=== PATIENT | female | born 1980 | race Caucasian/White ===

== ENCOUNTER 2016-09-10 05:17 | Emergency (ER) | payer MEDICAID ==
[~2016-09-10] VITALS: Ht 160 cm; Wt 88.2 kg
[2016-09-10 05:22] VITALS: BP 134/91; PULSE 103; RESP 18; TEMP 98; O2SAT 97
[2016-09-10] MEDS ORDERED: PREN29TA PO (05:37)
[2016-09-10] MEDS ORDERED: SODIUM CHLOR 0.9% 1000 ML INJ 1,000 ML IV ONE (05:41)
[2016-09-10] MEDS ORDERED: MORPHINE SULFATE 8 MG/ML INJ IV PUSH ONE (05:45)
[2016-09-10] MEDS ORDERED: ONDANSETRON HCL 4 MG/2 ML VIAL IV PUSH ONE (05:45)
--- NOTE | 2016-09-10 05:49 | PD ---
HPI Chief Complaint: Related Problem Time Seen by Provider: 05:29 Travel History International Travel<30 days: No Contact w/Intl Traveler<30days: No Traveled to known affect area: No History of Present Illness HPI 36 yo LMP 8 weeks prior states she has had pelvic and back pain for about 2 hours. It woke her up from sleep. She has not used pads to collect blood however states "a lot of blood" has been observed. She states her pain is sharp and severe 10/10. First obstetrics appointment is in 7 days. No discharge. No vomiting or fever. PFSH Past Medical History Arthritis: Yes (RHEUMATOID) Asthma: No Blood Disorders: No Heart Rhythm Problems: No Cancer: No Cardiovascular Problems: No High Cholesterol: Yes Chemotherapy: No Chest Pain: No Congestive Heart Failure: No COPD: No Diabetes: No Diminished Hearing: No Endocrine: No Genitourinary: No Immune Disorder: Yes (RHEUMATOID ARTHRITIS) Musculoskeletal: Yes (L SPINE CHRONICK PAIN DUE TO 3 DISCKS CARTILAGE PROBLEMS ) Neurologic: No Psychiatric: No Reproductive: No Respiratory: No Radiation Therapy: No Sleep Apnea: No Thyroid Disease: No ?: LMP: 11-17-16 : 1 Para: 1 Dilation and Curettage (D&C): Yes (HISTOSCOPY, LAPROSCOPY.) Past Surgical History Abdominal Surgery: Yes (DECEMBER 2006 - LAPAROSCOPY) Gynecologic Surgery: Yes (HYSTEROSTOMY DECEMBER 2006) Hysterectomy: Yes Other Surgery: Yes (HYSTEROSCOPY/LAPOROSCOPY X 10 YRS AGO) Social History Alcohol Use: No Tobacco Use: Yes (1 PACK DAILY) Substance Use: No Allergies-Medications (Allergen,Severity, Reaction): Coded Allergies: Cleocin (Verified Allergy, Severe, Anaphylaxis, 09/10/16) Naprosyn (Verified Allergy, Severe, SWELLING, 09/10/16) Codeine (Verified Allergy, Mild, ITCH, 09/10/16) Phenazopyridine (Verified Adverse Reaction, Mild, Nausea/Vomiting, 09/10/16 ) Reported Meds & Prescriptions Reported Meds & Active Scripts Active Reported Plus Iron 29-1 mg ( Vit-Iron Carbonyl) 1 Tab Tab 1 Tab PO HS Review of Systems Except as stated in HPI: all other systems reviewed are Neg General / Constitutional: No: Fever, Chills Genitourinary: Positive: Vaginal Bleeding Physical Exam Narrative GENERAL: 36 yo F, crying, WNWD SKIN: Warm and dry. HEAD: Atraumatic. Normocephalic. EYES: Pupils equal and round. No scleral icterus. No injection or drainage. ENT: No nasal bleeding or discharge. Mucous membranes pink and moist. NECK: Trachea midline. No JVD. CARDIOVASCULAR: Regular rate and rhythm. RESPIRATORY: No accessory muscle use. Clear to auscultation. Breath sounds equal bilaterally. GASTROINTESTINAL: Abdomen soft, non-tender, nondistended. Hepatic and splenic margins not palpable. No pain during performance of TA ultrasound. MUSCULOSKELETAL: Extremities without clubbing, cyanosis, or edema. No obvious deformities. NEUROLOGICAL: Awake and alert. No obvious cranial nerve deficits. Motor grossly within normal limits. Five out of 5 muscle strength in the arms and legs. Normal speech. PSYCHIATRIC: Appropriate mood and affect; insight and judgment normal. Data Data Last Documented VS Vital Signs Date Time Temp Pulse Resp B/P Pulse Ox O2 Delivery O2 Flow Rate FiO2 09/10/16 06:33 82 18 128/77 97 Room Air 09/10/16 05:22 98.0 Orders Complete Rh (09/10/16 05:30) Urinalysis - C+S If Indicated (09/10/16 05:30) Ed Urine Pregnancytest Poc (09/10/16 05:30) Ed Poc Ultrasound (09/10/16 05:30) Complete Blood Count With Diff (09/10/16 05:41) Comprehensive Metabolic Panel (09/10/16 05:41) Iv Access Insert/Monitor (09/10/16 05:41) Ecg Monitoring (09/10/16 05:41) Sodium Chlor 0.9% 1000 Ml Inj (Ns 1000 M (09/10/16 05:41) Morphine Inj (Morphine Inj) (09/10/16 05:45) Ondansetron Inj (Zofran Inj) (09/10/16 05:45) Beta Hcg (Quant/Titer) (09/10/16 05:41) Gc And Chlamydia Pcr (09/10/16 06:16) Wet Prep Profile (09/10/16 06:16) Ct Abd/Pel W Iv Contrast(Rout) (09/10/16 06:28) Labs Laboratory Tests Test 09/10/16 09/10/16 09/10/16 05:40 06:10 06:25 White Blood Count 8.7 TH/MM3 Red Blood Count 4.22 MIL/MM3 Hemoglobin 13.6 GM/DL Hematocrit 39.2 % Mean Corpuscular Volume 92.7 FL Mean Corpuscular Hemoglobin 32.2 PG Mean Corpuscular Hemoglobin 34.7 % Concent Red Cell Distribution Width 13.6 % Platelet Count 279 TH/MM3 Mean Platelet Volume 8.4 FL Neutrophils (%) (Auto) 60.1 % Lymphocytes (%) (Auto) 30.0 % Monocytes (%) (Auto) 6.6 % Eosinophils (%) (Auto) 3.1 % Basophils (%) (Auto) 0.2 % Neutrophils # (Auto) 5.2 TH/MM3 Lymphocytes # (Auto) 2.6 TH/MM3 Monocytes # (Auto) 0.6 TH/MM3 Eosinophils # (Auto) 0.3 TH/MM3 Basophils # (Auto) 0.0 TH/MM3 CBC Comment DIFF FINAL Differential Comment Sodium Level 149 MEQ/L Potassium Level 4.0 MEQ/L Chloride Level 113 MEQ/L Carbon Dioxide Level 25.5 MEQ/L Anion Gap 11 MEQ/L Blood Urea Nitrogen 10 MG/DL Creatinine 0.84 MG/DL Estimat Glomerular Filtration 78 ML/MIN Rate Random Glucose 104 MG/DL Calcium Level 8.4 MG/DL Total Bilirubin 0.4 MG/DL Aspartate Amino Transf 10 U/L (AST/SGOT) Alanine Aminotransferase 12 U/L (ALT/SGPT) Alkaline Phosphatase 66 U/L Total Protein 7.4 GM/DL Albumin 3.5 GM/DL Human Chorionic Gonadotropin, LESS THAN 1 Quant MIU/ML Blood Type AB POSITIVE Rho(D) Type POSITIVE Urine Collection Type CLEAN CATCH Urine Color YELLOW Urine Turbidity CLEAR Urine pH 7.0 Urine Specific [place] 1.020 Urine Protein NEG mg/dL Urine Glucose (UA) NEG mg/dL Urine Ketones NEG mg/dL Urine Occult Blood LARGE Urine Nitrite NEG Urine Bilirubin NEG Urine Leukocyte Esterase NEG Urine RBC 20-24 /hpf Urine Squamous Epithelial 0-5 /hpf Cells Urine Amorphous Sediment FEW Microscopic Urinalysis Comment CULT NOT INDICATED Urine Collection Time 0610 Clue Cells (Wet Prep) NONE SEEN Vaginal Trichomonas (Wet Prep) NONE SEEN Vaginal Yeast (Wet Prep) NONE SEEN MDM Medical Decision Making Medical Screen Exam Complete: Yes Emergency Medical Condition: Yes Medical Record Reviewed: Yes Differential Diagnosis Threatened , ectopic , UTI Narrative Course TA ultrasound demonstrates no IUP. CBC & BMP Diagram 09/10/16 05:40 LFTs normal Beta < 1 U preg negative UA: Hematuria with no UTI Pt notified of negative urine . Pelvic exam with minimal CMT and minimal L adnexal tenderness without mass. Minimal heterogenous blood in vault. Pt c/o pressure in epigastrium and pain in the back. CT ab/pel added. Oncoming provider to follow up CT and disposition appropriately. Scar Guzman MD Sep 10, 2016 05:49 Disposition: 01 DISCHARGE HOME Condition: Stable Scar Guzman MD Sep 10, 2016 05:49
[2016-09-10 06:00] LABS: AUTOMATED NEUTROPHIL # 5.2 TH/MM3 (1.8-7.7); BASOPHIL % 0.2 % (0.0-2.0); EOSINOPHIL # 0.3 TH/MM3 (0-0.4); EOSINOPHIL % 3.1 % (0.0-4.0); HEMATOCRIT 39.2 % (35.0-46.0); HEMO FLAGS DIFF FINAL; LYMPHOCYTE # 2.6 TH/MM3 (1.0-4.8); MEAN CELL VOLUME 92.7 FL (80.0-100.0); MEAN CORPUSCULAR HEMOGLOBIN 32.2 PG (27.0-34.0); MEAN CORPUSCULAR HGB CONC 34.7 % (32.0-36.0); MONO % 6.6 % (0.0-8.0); NEUT % 60.1 % (16.0-70.0); PLATELET COUNT 279 TH/MM3 (150-450); RED BLOOD COUNT 4.22 MIL/MM3 (4.00-5.30); RED CELL DISTRIBUTION WIDTH 13.6 % (11.6-17.2); WHITE BLOOD COUNT 8.7 TH/MM3 (4.0-11.0)
[2016-09-10 06:10] LABS: CHLORIDE 113 MEQ/L (98-107); SODIUM (NA) 149 MEQ/L (136-145)
[2016-09-10 06:13] LABS: ANION GAP 11 MEQ/L (5-15); BICARBONATE 25.5 MEQ/L (21.0-32.0); BLOOD UREA NITROGEN 10 MG/DL (7-18)
[2016-09-10 06:16] LABS: ALT (GPT) 12 U/L (10-53); AST (GOT) 10 U/L (15-37); GLOMERULAR FILTRATION RATE 78 ML/MIN (>89)
[2016-09-10 06:18] LABS: TOTAL BILIRUBIN ADULT 0.4 MG/DL (0.2-1.0)
[2016-09-10 06:19] LABS: ALKALINE PHOSPHATASE 66 U/L (45-117)
[2016-09-10 06:21] LABS: BETA HCG QUANT LESS THAN 1 MIU/ML (0-5)
[2016-09-10 06:23] LABS: BLOOD, URINE LARGE (NEG); GLUCOSE,URINE NEG (NEG); KETONE, URINE NEG (NEG); NITRITE,URINE NEG (NEG)
[2016-09-10 06:26] LABS: METHOD OF COLLECTION CLEAN CATCH; URINE COLOR YELLOW (YELLW/STRAW)
[2016-09-10 06:27] LABS: CULTURE IF INDICATED CULT NOT INDICATED; SQUAMOUS EPITHELIAL CELL URINE 0-5 /hpf (0-5)
[2016-09-10 06:28] LABS: COMMENT (UR) CULT NOT INDICATED; COMMENT2 (UR) MUCOUS PRESENT
[2016-09-10 06:33] VITALS: BP 128/77; PULSE 82; RESP 18; O2SAT 97
[2016-09-10] MEDS ORDERED: IOHEXOL 350 MG/ML 10 ML VIAL (for RAD DIAG) IV ONE (07:04)
--- NOTE | 2016-09-10 07:13 | RADHPO ---
EXAM DATE/TIME: 09/10/2016 06:50 [facility] COMPARISON: No previous studies available for comparison. INDICATIONS : Pelvic and lower back pain. IV CONTRAST: 96 cc Omnipaque 350 (iohexol) IV ORAL CONTRAST: No oral contrast ingested. RADIATION DOSE: 18.2 CTDIvol (mGy) MEDICAL HISTORY : Rheumatoid arthritis. SURGICAL HISTORY : Hysterectomy. ENCOUNTER: Initial ACUITY: 1 day PAIN SCALE: 8/10 LOCATION: Bilateral pelvis TECHNIQUE: Volumetric scanning of the abdomen and pelvis was performed. Using automated exposure control and ad justment of the mA and/or kV according to patient size, radiation dose was kept as low as reasonably achievable to obtain optimal diagnostic quality images. FINDINGS: LOWER LUNGS: The visualized lower lungs are clear. LIVER: Homogeneous density without lesion. There is no dilation of the biliary tree. No calcified gallston es. SPLEEN: Normal size without lesion. PANCREAS: Within normal limits. KIDNEYS: Normal in size and shape. There is no mass, stone or hydronephrosis. ADRENAL GLANDS: Within normal limits. VASCULAR: There is no aortic aneurysm. BOWEL/MESENTERY: The stomach, small bowel, and colon demonstrate no acute abnormality. There is no free intraperitone al air or fluid. ABDOMINAL WALL: Within normal limits. RETROPERITONEUM: There is no lymphadenopathy. BLADDER: No wall thickening or mass. REPRODUCTIVE: 5.0 x 4.7 x 4.0 cm mass right adnexa likely prominent functional cyst on the right ovary. Small amoun t of free fluid INGUINAL: There is no lymphadenopathy or hernia. MUSCULOSKELETAL: Within normal limits for patient age. CONCLUSION: Normal examination except prominent functional cyst on the right ovary. Nathan Villafuerte MD on September 10, 2016 at 7:10 Board Certified Radiologist. This report was verified electronically.
--- NOTE | 2016-09-10 07:23 | PD ---
Data Data Last Documented VS Vital Signs Date Time Temp Pulse Resp B/P Pulse Ox O2 Delivery O2 Flow Rate FiO2 09/10/16 06:33 82 18 128/77 97 Room Air 09/10/16 05:22 98.0 Orders Complete Rh (09/10/16 05:30) Urinalysis - C+S If Indicated (09/10/16 05:30) Ed Urine Pregnancytest Poc (09/10/16 05:30) Ed Poc Ultrasound (09/10/16 05:30) Complete Blood Count With Diff (09/10/16 05:41) Comprehensive Metabolic Panel (09/10/16 05:41) Iv Access Insert/Monitor (09/10/16 05:41) Ecg Monitoring (09/10/16 05:41) Sodium Chlor 0.9% 1000 Ml Inj (Ns 1000 M (09/10/16 05:41) Morphine Inj (Morphine Inj) (09/10/16 05:45) Ondansetron Inj (Zofran Inj) (09/10/16 05:45) Beta Hcg (Quant/Titer) (09/10/16 05:41) Gc And Chlamydia Pcr (09/10/16 06:16) Wet Prep Profile (09/10/16 06:16) Ct Abd/Pel W Iv Contrast(Rout) (09/10/16 06:28) Iohexol 350 Inj (Omnipaque 350 Inj) (09/10/16 07:04) Us Pelvis Comp W Dop Transvag (09/10/16 ) Labs Laboratory Tests Test 09/10/16 09/10/16 09/10/16 05:40 06:10 06:25 White Blood Count 8.7 TH/MM3 Red Blood Count 4.22 MIL/MM3 Hemoglobin 13.6 GM/DL Hematocrit 39.2 % Mean Corpuscular Volume 92.7 FL Mean Corpuscular Hemoglobin 32.2 PG Mean Corpuscular Hemoglobin 34.7 % Concent Red Cell Distribution Width 13.6 % Platelet Count 279 TH/MM3 Mean Platelet Volume 8.4 FL Neutrophils (%) (Auto) 60.1 % Lymphocytes (%) (Auto) 30.0 % Monocytes (%) (Auto) 6.6 % Eosinophils (%) (Auto) 3.1 % Basophils (%) (Auto) 0.2 % Neutrophils # (Auto) 5.2 TH/MM3 Lymphocytes # (Auto) 2.6 TH/MM3 Monocytes # (Auto) 0.6 TH/MM3 Eosinophils # (Auto) 0.3 TH/MM3 Basophils # (Auto) 0.0 TH/MM3 CBC Comment DIFF FINAL Differential Comment Sodium Level 149 MEQ/L Potassium Level 4.0 MEQ/L Chloride Level 113 MEQ/L Carbon Dioxide Level 25.5 MEQ/L Anion Gap 11 MEQ/L Blood Urea Nitrogen 10 MG/DL Creatinine 0.84 MG/DL Estimat Glomerular Filtration 78 ML/MIN Rate Random Glucose 104 MG/DL Calcium Level 8.4 MG/DL Total Bilirubin 0.4 MG/DL Aspartate Amino Transf 10 U/L (AST/SGOT) Alanine Aminotransferase 12 U/L (ALT/SGPT) Alkaline Phosphatase 66 U/L Total Protein 7.4 GM/DL Albumin 3.5 GM/DL Human Chorionic Gonadotropin, LESS THAN 1 Quant MIU/ML Blood Type AB POSITIVE Rho(D) Type POSITIVE Urine Collection Type CLEAN CATCH Urine Color YELLOW Urine Turbidity CLEAR Urine pH 7.0 Urine Specific [place] 1.020 Urine Protein NEG mg/dL Urine Glucose (UA) NEG mg/dL Urine Ketones NEG mg/dL Urine Occult Blood LARGE Urine Nitrite NEG Urine Bilirubin NEG Urine Leukocyte Esterase NEG Urine RBC 20-24 /hpf Urine Squamous Epithelial 0-5 /hpf Cells Urine Amorphous Sediment FEW Microscopic Urinalysis Comment CULT NOT INDICATED Urine Collection Time 0610 Clue Cells (Wet Prep) NONE SEEN Vaginal Trichomonas (Wet Prep) NONE SEEN Vaginal Yeast (Wet Prep) NONE SEEN MDM Supervised Visit with VINICIUS: No Narrative Course Patient was initially evaluated by the previous provider and sent out to me at the beginning of my shift at approximately 7:[address] abdomen pelvis and disposition. See his note for further details. Briefly this is a 36-year-old female who presented with sudden onset lower abdominal/pelvic pain that woke her from sleep about 2 hours prior to arrival to the emergency department. She believed that she was almost 2 months as her LMP was 8 weeks prior and she had a positive home test. Beta hCG here is negative. Patient also complaining of having vaginal bleeding. CBC is unremarkable. CMP is essentially unremarkable. UA shows large occult blood with 20-24 RBCs, otherwise within normal limits, not suggestive of UTI. Wet prep is negative for clue cells, negative for yeast, negative for Trichomonas. CT abdomen pelvis read as normal exam except for prominent functional cyst on the right ovary that measures 5 x 4.7 x 4 cm. 7:20 AM: The patient was made aware of all findings. She is feeling a lot better after receiving pain medication. There is mild suprapubic tenderness without peritoneal signs. Pelvic ultrasound ordered to further evaluate the ovarian cyst as well as to rule out ovarian torsion. Pelvic ultrasound: UTERUS: The myometrium has homogeneous echotexture without mass. The uterus is retroverted RIGHT OVARY: The right ovary is prominent and almost solid-appearing measuring 4.1 by 4.1 x 3.8 cm. Could be related to a prominent hemorrhagic cyst. With the upper limits of normal for size the torsion is less likely. LEFT OVARY: The left ovary has a much more normal appearance with a functional cyst Ovary contains no mass or significant cystic lesion. MISCELLANEOUS: No free fluid. CONCLUSION: Upper limits of normal size of the right ovary with almost a solid appearance could be related to a complicated hemorrhagic cyst. Left there is a much more normal appearance with a few tiny functional cysts. The patient was made aware of ultrasound findings and was provided a copy of the report. She is resting comfortably. Abdominal exam is benign. She is complaining of a slight headache after receiving morphine. I will give her some Tylenol. She reports an allergy to Naprosyn. She is stable for discharge home with outpatient follow-up with an [employer]AND PROTECTION MANAGER doctor. She has an appointment to see one and one week and I told her to keep this appointment. She was informed on when to return to the emergency department pitcher verbalizes understanding and agreement with plan. Diagnosis Primary Impression: Ovarian cyst Qualified Code: N83.201 - Cyst of right ovary Referrals: [facility] 1 week Additional Instruction: You have a choice when it comes to health care, and we are glad that you chose [facility]. Hopefully, we have met your expectations on today's visit. You are welcome to return to [facility] at any time, as we are committed to meeting the health care needs of our community. Follow-up with your BRAND PROTECTION MANAGER doctor as scheduled. Return to the emergency department for worsening symptoms or any other concerns. Disposition: 01 DISCHARGE HOME Condition: Stable Myke Rose MD Sep 10, 2016 07:23
[2016-09-10 08:50] VITALS: BP 132/80; PULSE 80; RESP 18; O2SAT 99
--- NOTE | 2016-09-10 09:15 | RADHPO ---
EXAM DATE/TIME: 09/10/2016 08:14 [facility] COMPARISON: No previous studies available for comparison. INDICATIONS : Pain. Rule out torsion. MEDICAL HISTORY : Arthritis. Tobacco use. SURGICAL HISTORY : Hystoscopy. Hysterostomy. Dilation and curettage. ENCOUNTER: Initial ACUITY: 1 day PAIN SCORE: 9/10 LOCATION: Bilateral Paraspinal MEASUREMENTS: UTERUS: 6.6 x 2.6 x 4.3 cm ENDOMETRIAL STRIPE: 9 mm RIGHT OVARY: 5.7 x 4.1 x 4.1 cm LEFT OVARY: 4.1 x 2.7 x 1.4 cm FINDINGS: UTERUS: The myometrium has homogeneous echotexture without mass. The uterus is retroverted RIGHT OVARY: The right ovary is prominent and almost solid-appearing measuring 4.1 by 4.1 x 3.8 cm. Could be rela monae to a prominent hemorrhagic cyst. With the upper limits of normal for size the torsion is less lik dario. LEFT OVARY: The left ovary has a much more normal appearance with a functional cyst Ovary contains no mass or sig nificant cystic lesion. MISCELLANEOUS: No free fluid. CONCLUSION: Upper limits of normal size of the right ovary with almost a solid appearance could be related to a c omplicated hemorrhagic cyst. Left there is a much more normal appearance with a few tiny functional cysts. Nathan Villafuerte MD on September 10, 2016 at 9:11 Board Certified Radiologist. This report was verified electronically.
[2016-09-10 11:49] LABS: CHLAMYDIA PCR NOT DETECTED (NOT DETECT); NEISSERIA PCR NOT DETECTED (NOT DETECT)
== END 2016-09-10 10:02 | disposition home or self-care (01) ==
LOC: PHED 05:17
DX: N83.201 Unspecified ovarian cyst, right side (principal); E78.00 Pure hypercholesterolemia, unspecified; M06.9 Rheumatoid arthritis, unspecified; Z32.02 Encounter for pregnancy test, result negative
CPT/HCPCS: 74177; 76830; 76856; 80053; 81001; 84702; 84703; 85025; 87210; 87491; 87591; 93975; 96361; 96374; 96375; 99284; J2270; J2405; J7030; Q9967

== ENCOUNTER 2016-11-30 15:28 | Emergency (ER) | payer SELFPAY ==
[~2016-11-30] VITALS: Ht 160 cm; Wt 82.0 kg
[~2016-11-30 15:28] MED LIST: PREN29TA PO
[2016-11-30 15:31] VITALS: BP 130/76; PULSE 74; RESP 16; TEMP 98.6; O2SAT 97
--- NOTE | 2016-11-30 15:35 | PD ---
HPI Chief Complaint: Complaint Time Seen by Provider: 15:35 Travel History International Travel<30 days: No Contact w/Intl Traveler<30days: No Traveled to known affect area: No History of Present Illness HPI 36-year-old female with history of fibromyalgia presents to the ED for evaluation of 3 day history of dysuria, urinary urgency and increased urinary frequency. Gradual onset. The patient denies fever, chills, abdominal pain, nausea, vomiting, vaginal discharge or back pain. She's been treating with increased fluid intake and AZO with no improvement of symptoms. LMP 11/06. She denies risk of . She takes no daily medications. PFSH Past Medical History Arthritis: Yes (RHEUMATOID) Asthma: No Blood Disorders: No Heart Rhythm Problems: No Cancer: No Cardiovascular Problems: No High Cholesterol: Yes Chemotherapy: No Chest Pain: No Congestive Heart Failure: No COPD: No Diabetes: No Diminished Hearing: No Endocrine: No Genitourinary: No Immune Disorder: Yes (RHEUMATOID ARTHRITIS) Musculoskeletal: Yes (L SPINE CHRONICK PAIN DUE TO 3 DISCKS CARTILAGE PROBLEMS ) Neurologic: No Psychiatric: No Reproductive: No Respiratory: No Radiation Therapy: No Sleep Apnea: No Thyroid Disease: No ?: Not LMP: 11/06/16 : 1 Para: 1 Dilation and Curettage (D&C): Yes (HISTOSCOPY, LAPROSCOPY.) Past Surgical History Abdominal Surgery: Yes (DECEMBER 2006 - LAPAROSCOPY) Gynecologic Surgery: Yes (HYSTEROSTOMY DECEMBER 2006) Hysterectomy: Yes Other Surgery: Yes (HYSTEROSCOPY/LAPOROSCOPY X 10 YRS AGO) Social History Alcohol Use: No Tobacco Use: Yes (1 PACK DAILY) Substance Use: No Allergies-Medications (Allergen,Severity, Reaction): Coded Allergies: Cleocin (Verified Allergy, Severe, Anaphylaxis, 11/30/16) Naprosyn (Verified Allergy, Severe, SWELLING, 11/30/16) Codeine (Verified Allergy, Mild, ITCH, 11/30/16) Phenazopyridine (Verified Adverse Reaction, Mild, Nausea/Vomiting, 11/30/16) Reported Meds & Prescriptions Reported Meds & Active Scripts Active Bactrim DS (Sulfamethoxazole-Trimethoprim) 800-160 Mg Tab 1 Tab PO BID 5 Days Review of Systems Except as stated in HPI: all other systems reviewed are Neg Physical Exam Narrative GENERAL: Well-nourished, well-developed nontoxic appearing white female in no acute distress. SKIN: Focused skin assessment warm/dry. HEAD: Normocephalic. EYES: No scleral icterus. No injection or drainage. NECK: Supple, trachea midline. No JVD or lymphadenopathy. CARDIOVASCULAR: Regular rate and rhythm without murmurs, gallops, or rubs. RESPIRATORY: Breath sounds clear and equal bilaterally. No accessory muscle use. GASTROINTESTINAL: Abdomen soft, non-tender, nondistended. No suprapubic tenderness. Active bowel sounds. MUSCULOSKELETAL: No cyanosis, or edema. Patient is ambulatory, moves extremities spontaneously. She is noted to walk with a normal gait. BACK: Nontender without obvious deformity. No CVA tenderness. Data Data Last Documented VS Vital Signs Date Time Temp Pulse Resp B/P Pulse Ox O2 Delivery O2 Flow Rate FiO2 11/30/16 15:31 98.6 74 16 130/76 97 Orders Urinalysis - C+S If Indicated (11/30/16 15:30) Ed Urine Pregnancytest Poc (11/30/16 15:30) Urine Culture (11/30/16 15:40) Sulfamet-Trimeth Ds 800-160 Mg (Bactrim (11/30/16 16:00) Labs Laboratory Tests Test 11/30/16 15:40 Urine Collection Type CLEAN CATCH Urine Color ORANGE Urine Turbidity SLIGHT Urine pH 6.5 Urine Specific [place] 1.011 Urine Protein 100 mg/dL Urine Glucose (UA) 100 mg/dL Urine Ketones TRACE mg/dL Urine Occult Blood MOD Urine Nitrite POS Urine Bilirubin NEG Urine Leukocyte Esterase LARGE Urine RBC 20-24 /hpf Urine WBC 100-200 /hpf Urine WBC Clumps MOD Urine Squamous Epithelial 6-8 /hpf Cells Urine Yeast (Budding) MANY Microscopic Urinalysis Comment CULTURE INDICATED Urine Collection Time 15:40 [facility] Medical Decision Making Medical Screen Exam Complete: Yes Emergency Medical Condition: Yes Medical Record Reviewed: Yes Differential Diagnosis Cystitis versus pyelonephritis versus STI versus other Narrative Course 36-year-old female with history of fibromyalgia presents to the ED for evaluation of 3 day history of dysuria, urinary urgency and increased urinary frequency. Gradual onset. The patient denies fever, chills, abdominal pain, nausea, vomiting, vaginal discharge or back pain. Vitals reviewed. No suprapubic or CVA tenderness on exam. UA [place], trace ketones, moderate occult blood, positive nitrates, large leukocyte esterase, 20-24 RBCs, 100-200 WBCs, moderate WBC clumps, many yeast. Culture pending. On review of the record , previous urine cultures grew Enterobacter and Escherichia coli, both susceptible to Bactrim. Patient's prescribed Bactrim DS twice a day 5 days. First dose administered in the ED. I discussed the results of the UA, including the presence of yeast. Patient states she will treat with an OTC medication. She is instructed to take all antibiotics as prescribed, follow up with the PCP. She indicated understanding of instructions. She is agreeable to the care plan. She is stable and discharged home. Diagnosis Primary Impression: Acute cystitis Qualified Code: N30.01 - Acute cystitis with hematuria Referrals: Primary Care Physician Patient Instructions: General Instructions, Urinary Tract Infection in Women ( ED) Additional Instructions: Rest, hydrate. Take all antibiotics as prescribed, even if your symptoms resolve. Follow-up with her primary care provider. Return to the ED for any urgent or emergent medical condition. Med/Other Pt SpecificInfo: Prescription(s) given Scripts Sulfamethoxazole-Trimethoprim (Bactrim DS)800-160 Mg Tab1 Tab PO BID 5 Days Ref 0 Prov:Jackie Rodriguez MD 11/30/16 Disposition: 01 DISCHARGE HOME Condition: Stable Betsy Fitzpatrick Nov 30, 2016 15:35
[2016-11-30 15:52] LABS: GLUCOSE,URINE 100 mg/dL (NEG); KETONE, URINE TRACE mg/dL (NEG); PH, URINE 6.5 (5.0-8.5)
[2016-11-30 15:54] LABS: BLOOD, URINE MOD (NEG); METHOD OF COLLECTION CLEAN CATCH; NITRITE,URINE POS (NEG)
[2016-11-30] MEDS ORDERED: BACT800T5 PO (15:54)
[2016-11-30 15:55] LABS: URINE COLOR ORANGE (YELLW/STRAW)
[2016-11-30 15:57] LABS: COMMENT (UR) CULTURE INDICATED; CULTURE IF INDICATED CULTURE INDICATED; WBC, URINE 100-200 /hpf (0-5)
[2016-11-30] MEDS ORDERED: SULFAMETHOXAZOLE-TRIMETHOPRIM DS 800-160 MG TAB PO ONE (16:00)
== END 2016-11-30 16:13 | disposition home or self-care (01) ==
LOC: PHEFT 15:28
DX: N30.00 Acute cystitis without hematuria (principal); B96.29 Other Escherichia coli [E. coli] as the cause of diseases classified elsewhere; F17.210 Nicotine dependence, cigarettes, uncomplicated; M06.9 Rheumatoid arthritis, unspecified; E78.00 Pure hypercholesterolemia, unspecified
CPT/HCPCS: 81001; 84703; 87077; 87086; 87186; 99283

== ENCOUNTER 2017-04-09 18:57 | Emergency (ER) | payer SELFPAY ==
[~2017-04-09] VITALS: Ht 160 cm; Wt 76.1 kg
[~2017-04-09 18:57] MED LIST changes: +BACT800T5 PO; -PREN29TA PO
[2017-04-09 19:07] VITALS: BP 129/78; PULSE 76; RESP 18; TEMP 98; O2SAT 98
[2017-04-09] MEDS ORDERED: AUGM875T3 PO (19:11)
--- NOTE | 2017-04-09 19:13 | PD ---
HPI Chief Complaint: Bite or Sting Time Seen by Provider: 19:12 Travel History International Travel<30 days: No Contact w/Intl Traveler<30days: No Traveled to known affect area: No History of Present Illness HPI 37-year-old female presents to the emergency room for evaluation of a dog bite to her left third and first fingers that occurred last night. Patient's melaua bit her. States she woke up this morning with drainage from the thumb wound and significantly increased pain. She is concerned for infection. Dog was up-to-date on rabies vaccination. Unknown last tetanus. PFSH Past Medical History Arthritis: Yes (RHEUMATOID) Asthma: No Blood Disorders: No Heart Rhythm Problems: No Cancer: No Cardiovascular Problems: No High Cholesterol: Yes Chemotherapy: No Chest Pain: No Congestive Heart Failure: No COPD: No Diabetes: No Diminished Hearing: No Endocrine: No Genitourinary: No Immune Disorder: Yes (RHEUMATOID ARTHRITIS) Musculoskeletal: Yes (L SPINE CHRONICK PAIN DUE TO 3 DISCKS CARTILAGE PROBLEMS ) Neurologic: No Psychiatric: No Reproductive: No Respiratory: No Immunizations Current: Yes Radiation Therapy: No Sleep Apnea: No Thyroid Disease: No Tetanus Vaccination: > 5 Years Influenza Vaccination: No ?: Not : 1 Para: 1 Dilation and Curettage (D&C): Yes (HISTOSCOPY, LAPROSCOPY.) Past Surgical History Abdominal Surgery: Yes (DECEMBER 2006 - LAPAROSCOPY) Gynecologic Surgery: Yes (HYSTEROSTOMY DECEMBER 2006) Hysterectomy: Yes Other Surgery: Yes (HYSTEROSCOPY/LAPOROSCOPY X 10 YRS AGO) Social History Alcohol Use: No Tobacco Use: Yes (1 PACK DAILY) Substance Use: No Allergies-Medications (Allergen,Severity, Reaction): Coded Allergies: Cleocin (Verified Allergy, Severe, Anaphylaxis, 04/09/17) Naprosyn (Verified Allergy, Severe, SWELLING, 04/09/17) Codeine (Verified Allergy, Mild, ITCH, 04/09/17) Phenazopyridine (Verified Adverse Reaction, Mild, Nausea/Vomiting, 04/09/17 ) Reported Meds & Prescriptions Reported Meds & Active Scripts Active Augmentin (Amoxicillin-Clavulanate) 875-125 Mg Tab 1 Tab PO BID 10 Days Review of Systems Except as stated in HPI: all other systems reviewed are Neg Physical Exam Narrative GENERAL: Well-nourished, well-developed female in no acute distress. Afebrile. Ambulatory. SKIN: Focused skin assessment warm/dry. No erythema or ecchymosis. No lymphangitis. There are 2 very superficial abrasions on the left first and third fingers. HEAD: Normocephalic. EYES: No scleral icterus. No injection or drainage. NECK: Supple, trachea midline. No JVD or lymphadenopathy. CARDIOVASCULAR: Regular rate and rhythm without murmurs, gallops, or rubs. RESPIRATORY: Breath sounds equal bilaterally. No accessory muscle use. MUSCULOSKELETAL: No cyanosis. No significant edema. Limited range of motion secondary to pain. Data Data Last Documented VS Vital Signs Date Time Temp Pulse Resp B/P Pulse Ox O2 Delivery O2 Flow Rate FiO2 04/09/17 19:07 98.0 76 18 129/78 98 Orders Tetanus/Diphtheria Tox Adult (Tetanus/Di (04/09/17 19:15) MDM Medical Decision Making Medical Screen Exam Complete: Yes Emergency Medical Condition: Yes Medical Record Reviewed: Yes Differential Diagnosis Animal bite, cellulitis, joint infection, foreign body Narrative Course 37-year-old female is to the emergency room for evaluation of dog bite to her left first and third fingers. Patient was bit by her own dog last night. Her dog is up-to-date on rabies. Patient tetanus was updated in the emergency room. Physical exam reveals extremely superficial abrasions to the left first and third fingers. No significant edema. The thumb wound has very mild surrounding erythema. No lymphangitis. No abscess. There is no significant evidence of infection but because of increased pain and drainage this morning, patient will be discharged with prescription for Augmentin. She was told to follow up with a primary care physician or return for worsening symptoms. She understands and agrees to plan. Diagnosis Primary Impression: Dog bite of finger Qualified Code: S61.259A - Dog bite of finger, initial encounter Referrals: Primary Care Physician Patient Instructions: Animal Bite (ED), General Instructions Additional Instructions: Keep wound clean and dry. Apply triple antibiotic ointment daily. Augmentin as directed, until gone. Follow-up with a primary care physician. Return for worsening symptoms. Med/Other Pt SpecificInfo: Prescription(s) given Scripts Amoxicillin-Clavulanate (Augmentin)875-125 Mg Tab1 Tab PO BID 10 Days Ref 0 Prov:Dayday Dowell MD 04/09/17 Disposition: 01 DISCHARGE HOME Condition: Stable Geraldine Marquez Apr 09, 2017 19:13
[2017-04-09] MEDS ORDERED: TETANUS/DIPHTHERIA TOXOID ADULT 0.5 ML VIAL IM ONE (19:15)
== END 2017-04-09 19:24 | disposition home or self-care (01) ==
LOC: PHEFT 18:57
DX: S61.253A Open bite of left middle finger without damage to nail, initial encounter (principal); S61.052A Open bite of left thumb without damage to nail, initial encounter; Z23 Encounter for immunization; W54.0XXA Bitten by dog, initial encounter
CPT/HCPCS: 90471; 90714; 96372

== ENCOUNTER 2017-05-18 17:35 | Emergency (ER) | payer SELFPAY ==
[~2017-05-18] VITALS: Ht 160 cm; Wt 77.0 kg
[~2017-05-18 17:35] MED LIST changes: +AUGM875T3 PO; -BACT800T5 PO
[2017-05-18 17:47] VITALS: BP 132/78; PULSE 67; RESP 16; TEMP 99.4; O2SAT 99
--- NOTE | 2017-05-18 18:06 | PD ---
HPI Chief Complaint: anterior neck lymph node Time Seen by Provider: 17:54 Travel History International Travel<30 days: No Contact w/Intl Traveler<30days: No History of Present Illness HPI 37-year-old female complains of right neck swelling and tenderness. It was first noticed this morning. Timing constant. She denies sore throat. She denies fever. The pain radiates to the back of the neck. No neck stiffness. No headache or LOC. PFSH Past Medical History Arthritis: Yes (RHEUMATOID) Asthma: No Blood Disorders: No Heart Rhythm Problems: No Cancer: No Cardiovascular Problems: No High Cholesterol: Yes Chemotherapy: No Chest Pain: No Congestive Heart Failure: No COPD: No Diabetes: No Diminished Hearing: No Endocrine: No Genitourinary: No Immune Disorder: Yes (RHEUMATOID ARTHRITIS) Musculoskeletal: Yes (L SPINE CHRONICK PAIN DUE TO 3 DISCKS CARTILAGE PROBLEMS ) Neurologic: No Psychiatric: No Reproductive: No Respiratory: No Immunizations Current: Yes Radiation Therapy: No Sleep Apnea: No Thyroid Disease: No : 1 Para: 1 Dilation and Curettage (D&C): Yes (HISTOSCOPY, LAPROSCOPY.) Past Surgical History Abdominal Surgery: Yes (DECEMBER 2006 - LAPAROSCOPY) Gynecologic Surgery: Yes (HYSTEROSTOMY DECEMBER 2006) Hysterectomy: Yes Other Surgery: Yes (HYSTEROSCOPY/LAPOROSCOPY X 10 YRS AGO) Social History Alcohol Use: No Tobacco Use: Yes (1 PACK DAILY) Substance Use: No Allergies-Medications (Allergen,Severity, Reaction): Coded Allergies: clindamycin (Unverified Allergy, Severe, Anaphylaxis, 04/11/17) naproxen (Unverified Allergy, Severe, SWELLING, 04/11/17) codeine (Unverified Allergy, Mild, ITCH, 04/11/17) phenazopyridine (Unverified Adverse Reaction, Mild, Nausea/Vomiting, ) Reported Meds & Prescriptions Reported Meds & Active Scripts Active Review of Systems Except as stated in HPI: all other systems reviewed are Neg General / Constitutional: No: Fever Respiratory: No: Cough Gastrointestinal: No: Nausea, Vomiting Physical Exam Narrative GENERAL: 37 yo F, WNWD, NAD SKIN: Warm and dry. HEAD: Atraumatic. Normocephalic. EYES: Pupils equal and round. No scleral icterus. No injection or drainage. ENT: No nasal bleeding or discharge. Mucous membranes pink and moist. Left tonsil w 1mm exudative lesion. No asymmetry or significant tonsillar erythema. No depression of soft palate. NECK: Trachea midline. No JVD. +TTP R anterior neck with approx 2cm lymph node. CARDIOVASCULAR: Regular rate and rhythm. RESPIRATORY: No accessory muscle use. Clear to auscultation. Breath sounds equal bilaterally. GASTROINTESTINAL: Abdomen soft, non-tender, nondistended. Hepatic and splenic margins not palpable. MUSCULOSKELETAL: Extremities without clubbing, cyanosis, or edema. No obvious deformities. NEUROLOGICAL: Awake and alert. No obvious cranial nerve deficits. Motor grossly within normal limits. Five out of 5 muscle strength in the arms and legs. Normal speech. PSYCHIATRIC: Appropriate mood and affect; insight and judgment normal. Data Data Last Documented VS Vital Signs Date Time Temp Pulse Resp B/P (MAP) Pulse Ox O2 Delivery O2 Flow Rate FiO2 05/18/17 17:47 99.4 67 16 132/78 (96) 99 Room Air VS reviewed Orders Orders Group A Rapid Strep Screen (05/18/17 17:58) Strep Culture (Group A) (05/18/17 18:01) [facility] Medical Decision Making Medical Screen Exam Complete: Yes Emergency Medical Condition: Yes Medical Record Reviewed: Yes Differential Diagnosis Viral syndrome, neoplasia, streptococcal pharyngitis, mononucleosis Narrative Course Rapid strep negative. Ice, hydration, rest. Return precautions discussed. Diagnosis Primary Impression: Enlarged lymph node in neck Referrals: Primary Care Physician 2 days Additional Instructions: You have a choice when it comes to health care, and we are glad that you chose [facility]. Hopefully, we have met your expectations on today's visit. You are welcome to return to [facility] at any time, as we are committed to meeting the health care needs of our community. Med/Other Pt SpecificInfo: Prescription(s) given Disposition: DISCHARGE HOME Condition: Scar Enriquez MD May 18, 2017 18:06
== END 2017-05-18 18:54 | disposition home or self-care (01) ==
LOC: PHED 17:35
DX: R59.9 Enlarged lymph nodes, unspecified (principal)
CPT/HCPCS: 87081; 87880; 99283

== ENCOUNTER 2017-10-01 15:59 | Emergency (ER) | payer SELFPAY ==
[~2017-10-01] VITALS: Ht 160 cm; Wt 84.0 kg
[2017-10-01 16:02] VITALS: BP 132/82; PULSE 64; RESP 16; TEMP 97.4; O2SAT 99
[2017-10-01 16:40] LABS: BILIRUBIN, URINE NEG (NEG); BLOOD, URINE NEG (NEG); GLUCOSE,URINE NEG (NEG); KETONE, URINE NEG (NEG); NITRITE,URINE POS (NEG); PH, URINE 6.5 (5.0-8.5); URINE LEUKOCYTE ESTERASE TRACE (NEG)
[2017-10-01 17:15] LABS: BACTERIA, URINE RARE /hpf; SQUAMOUS EPITHELIAL CELL URINE 0-2 /hpf (0-5); URINE COLOR YELLOW (YELLW/STRAW)
[2017-10-01] MEDS ORDERED: BACT800T5 PO (17:28)
--- NOTE | 2017-10-01 17:29 | PD ---
HPI Chief Complaint: Complaint Time Seen by Provider: 16:41 Travel History International Travel<30 days: No Contact w/Intl Traveler<30days: No Traveled to known affect area: No History of Present Illness HPI Says a 37-year-old female with dysuria 3 days. History of UTIs with similar symptoms in the past. Denies fever or chills. Symptom severity is moderate. No aggravating or alleviating factors. PFSH Past Medical History Arthritis: Yes (RHEUMATOID) Asthma: No Blood Disorders: No Heart Rhythm Problems: No Cancer: No Cardiovascular Problems: No High Cholesterol: Yes Chemotherapy: No Chest Pain: No Congestive Heart Failure: No COPD: No Diabetes: No Diminished Hearing: No Endocrine: No Genitourinary: No Immune Disorder: Yes (RHEUMATOID ARTHRITIS) Musculoskeletal: Yes (L SPINE CHRONICK PAIN DUE TO 3 DISCKS CARTILAGE PROBLEMS ) Neurologic: No Psychiatric: No Reproductive: No Respiratory: No Immunizations Current: Yes Radiation Therapy: No Sleep Apnea: No Thyroid Disease: No Tetanus Vaccination: < 5 Years Influenza Vaccination: No ?: Not LMP: 09-14-17 : 1 Para: 1 Dilation and Curettage (D&C): Yes (HISTOSCOPY, LAPROSCOPY.) Past Surgical History Abdominal Surgery: Yes (DECEMBER 2006 - LAPAROSCOPY) Coronary Artery Bypass Graft: Yes Gynecologic Surgery: Yes (HYSTEROSTOMY DECEMBER 2006) Hysterectomy: Yes Other Surgery: Yes (HYSTEROSCOPY/LAPOROSCOPY X 10 YRS AGO) Social History Alcohol Use: No Tobacco Use: Yes (1 PK) Substance Use: No Allergies-Medications (Allergen,Severity, Reaction): Coded Allergies: clindamycin (Unverified Allergy, Severe, Anaphylaxis, 10/01/17) naproxen (Unverified Allergy, Severe, SWELLING, 10/01/17) codeine (Unverified Allergy, Mild, ITCH, 10/01/17) phenazopyridine (Unverified Adverse Reaction, Mild, Nausea/Vomiting, ) Reported Meds & Prescriptions Reported Meds & Active Scripts Active Review of Systems Except as stated in HPI: all other systems reviewed are Neg General / Constitutional: No: Fever Genitourinary: Positive: Urgency, Frequency, Dysuria Physical Exam Narrative GENERAL: Alert and well-appearing 37-year-old female SKIN: Warm and dry. HEAD: Normocephalic. EYES: No injection or drainage. NECK: Supple CARDIOVASCULAR: Regular rate and rhythm RESPIRATORY: Breath sounds equal bilaterally. No accessory muscle use. GASTROINTESTINAL: Abdomen soft, non-tender, nondistended. BACK:No CVA tenderness. Data Data Last Documented VS Vital Signs Date Time Temp Pulse Resp B/P (MAP) Pulse Ox O2 Delivery O2 Flow Rate FiO2 10/01/17 16:02 97.4 64 16 132/82 (99) 99 Orders Orders Urinalysis - C+S If Indicated (10/01/17 16:06) Ed Urine Pregnancytest Poc (10/01/17 16:06) Urine Culture (10/01/17 16:15) Labs Laboratory Tests Test 10/01/17 16:15 Urine Collection Type VOIDED Urine Color YELLOW Urine Turbidity CLEAR Urine pH 6.5 Urine Specific [place] 1.007 Urine Protein NEG mg/dL Urine Glucose (UA) NEG mg/dL Urine Ketones NEG mg/dL Urine Occult Blood NEG Urine Nitrite POS Urine Bilirubin NEG Urine Leukocyte Esterase TRACE Urine WBC 3-5 /hpf Urine Squamous Epithelial Cells 0-2 /hpf Urine Bacteria RARE /hpf Microscopic Urinalysis Comment CULTURE INDICATED MDM Medical Decision Making Medical Screen Exam Complete: Yes Emergency Medical Condition: Yes Differential Diagnosis UTI, pyelonephritis, vaginitis Narrative Course 37-year-old female here with dysuria 3 days. Urine negative. UA positive for nitrates, leukocytes [place], bacteria. She'll be treated for UTI Diagnosis Primary Impression: UTI (urinary tract infection) Qualified Codes: N30.00 - Acute cystitis without hematuria Referrals: Primary Care Physician Scripts Sulfamethoxazole-Trimethoprim (Bactrim DS) 800-160 Mg Tab 1 TAB PO BID for Infection, #6 TAB 0 Refills Prov: Monique Singer 10/01/17 Disposition: 01 DISCHARGE HOME Condition: Stable Monique Singer Oct 01, 2017 17:29
== END 2017-10-01 17:34 | disposition home or self-care (01) ==
LOC: PHEFT 15:59
DX: N39.0 Urinary tract infection, site not specified (principal); M06.9 Rheumatoid arthritis, unspecified; E78.00 Pure hypercholesterolemia, unspecified; F17.200 Nicotine dependence, unspecified, uncomplicated; Z88.5 Allergy status to narcotic agent; Z88.8 Allergy status to other drugs, medicaments and biological substances
CPT/HCPCS: 81001; 84703; 87086; 99283